=== PATIENT | female | born 1950 | race Caucasian/White ===

== ENCOUNTER 2023-09-13 13:12 | Emergency (ER) | payer MEDICARE, OTHER ==
[~2023-09-13] VITALS: Ht 167.6 cm; Wt 75.5 kg
[2023-09-13 13:13] VITALS: BP 157/70; TEMP 97.8; O2SAT 97
[2023-09-13] MEDS ORDERED: OMEP40CA4 PO (13:28)
[2023-09-13] MEDS ORDERED: CARD60TA3 PO (13:28)
[2023-09-13] MEDS ORDERED: TREL1AER PO (13:28)
[2023-09-13] MEDS ORDERED: LEXA1TAB2 PO (13:28)
[2023-09-13] MEDS ORDERED: ATOR40TA75 PO (13:28)
[2023-09-13] MEDS ORDERED: LEVO112T2 PO (13:28)
== END 2023-09-13 17:04 | disposition home or self-care (01) ==
LOC: M ED 13:12
DX: Z13.9 Encounter for screening, unspecified (principal); I10 Essential (primary) hypertension; E78.5 Hyperlipidemia, unspecified; K21.9 Gastro-esophageal reflux disease without esophagitis; Z88.0 Allergy status to penicillin; Z88.1 Allergy status to other antibiotic agents; Z88.5 Allergy status to narcotic agent; Z79.899 Other long term (current) drug therapy